=== PATIENT | male | born 2000 | race Caucasian/White ===

== ENCOUNTER 2020-04-11 23:30 | Emergency (ER) | payer SELFPAY ==
[~2020-04-11] VITALS: Ht 188 cm; Wt 90.1 kg
[2020-04-11 23:40] VITALS: BP 132/71
== END 2020-04-12 00:15 | disposition left against medical advice (07) ==
LOC: ER 23:31
DX: R21 Rash and other nonspecific skin eruption (principal); Z53.21 Procedure and treatment not carried out due to patient leaving prior to being seen by health care provider

== ENCOUNTER 2021-05-22 22:03 | Emergency (ER) | payer OTHER ==
[~2021-05-22] VITALS: Ht 170.2 cm; Wt 77.3 kg
[2021-05-22 22:43] LABS: URINE AMPHETAMINE SCREEN NEGATIVE (Neg); URINE BARBITUATE SCREEN NEGATIVE (Neg); URINE BENZODIAZEPINES SCREEN NEGATIVE (Neg); URINE CANNABINOID SCREEN NEGATIVE (Neg); URINE COCAINE SCREEN NEGATIVE (Neg); URINE METHADONE SCREEN NEGATIVE (Neg); URINE OPIATE SCREEN NEGATIVE (Neg); URINE PHENCYCLIDINE SCREEN NEGATIVE (Neg)
[2021-05-22 22:49] LABS: CLARITY,URINE CLEAR (Clear); COLOR,URINE YELLOW (Yellow); GLUCOSE, URINE NEGATIVE (Neg); KETONES,URINE NEGATIVE (Neg); NITRITES, URINE NEGATIVE (Neg); OCCULT BLOOD,URINE NEGATIVE (Neg); PROTEIN,URINE NEGATIVE (Neg); UA COLLECTION TYPE VOIDED; UROBILINOGEN,URINE 0.2 E.U/dL (0.2-1.0)
[2021-05-22 22:50] LABS: LEUKOCYTE ESTERASE ,URINE NEGATIVE (Neg)
[2021-05-22 22:50] LABS: BASOPHILS % (AUTO) 0.5 % (0-1); EOSINOPHILS # (AUTO) 0.1 X10'3 (0-0.9); EOSINOPHILS % (AUTO) 1.4 % (0-6); HEMATOCRIT 39.5 % (42.0-52.0); HEMOGLOBIN 13.5 g/dl (14.0-17.9); LYMPHOCYTES # (AUTO) 1.6 X10'3 (1.1-4.8); LYMPHOCYTES % (AUTO) 28.6 % (21-51); MEAN CORPUSCULAR HEMOGLOBIN 28.7 PG (27.0-31.0); MEAN CORPUSCULAR HGB CONC 34.3 g/dL (33.0-36.5); MEAN CORPUSCULAR VOLUME 83.7 FL (78-98); MEAN PLATELET VOLUME 7.4 FL (7.4-10.4); MONOCYTES # (AUTO) 0.4 X10'3 (0-0.9); MONOCYTES % (AUTO) 7.7 % (2-12); NEUTROPHILS # (AUTO) 3.4 X10'3 (1.8-7.7); NEUTROPHILS % (AUTO) 61.8 % (42-75); PLATELET COUNT 237 X10'3 (140-440); RED BLOOD COUNT 4.72 X10'6 (4.70-6.10); RED CELL DISTRIBUTION WIDTH 13.9 % (11.5-14.5); WHITE BLOOD COUNT 5.6 X10'3 (4.5-11.0)
[2021-05-22 23:01] LABS: ALANINE AMINOTRANSFERASE 86 U/L (12-78); ALBUMIN 4.1 G/DL (3.4-5.0); ALBUMIN/GLOBULIN RATIO 1.1 (1.1-1.5); ALKALINE PHOSPHATASE 66 IU/L (46-116); ANION GAP 9 (8-16); ASPARTATE AMINO TRANSFERASE 44 U/L (10-37); BILIRUBIN,TOTAL 0.5 MG/DL (0.1-1.0); BLOOD UREA NITROGEN 7 MG/DL (7-18); BUN/CREATININE RATIO 9.7 (5.4-32.0); CHLORIDE 104 MMOL/L (99-107); CREATININE 0.72 MG/DL (0.60-1.10); GLUCOSE 116 MG/DL (70-104); POTASSIUM 3.9 MMOL/L (3.5-5.1); SODIUM 142 MMOL/L (135-145); TOTAL CARBON DIOXIDE 29.3 MMOL/L (24-32); TOTAL PROTEIN 7.9 G/DL (6.4-8.2); eGFR > 90 ML/MIN
[2021-05-22 23:09] LABS: ETHANOL < 0.010 GM/DL (0.0-0.010)
--- NOTE | 2021-05-22 23:15 | NUR ---
PT ROOMED BED 15. SECURITY BY ROOM PT ATTEMPTED TO LEAVE UPON ARRIVAL.
--- NOTE | 2021-05-22 23:25 | NUR ---
BELONGINGS HAVE ALREADY BEEN LOCKED BY TECH AND SECURITY.
--- NOTE | 2021-05-22 23:34 | NUR ---
PT IS CURRENTLY DENYING ANY SUICIDAL IDEATION. DENIES SPEAKING TO ANYONE WITH DESIRE TO HURT HIMSELF. DENIES BEING ON ANY MEDICATION OR HAVING ANY FOLLOW UP WITH A THERAPIST. EXPRESSES DESIRE TO HAVE A PHONE CALL AND LEAVE. FLAT AFFECT. ANSWERS QUESTIONS WITH 2-3 WORDS.
[2021-05-23] MEDS ORDERED: LORazepam 2 mg/ml vial IM ONE ×2
[2021-05-23] MEDS ORDERED: diphenhydrAMINE 50 mg/ml inj IM ONE ×2
[2021-05-23] MEDS ORDERED: haloperidol lactate 5mg/ml inj IM ONE ×2
--- NOTE | 2021-05-23 01:16 | NUR ---
pt arrived from main ER and asked to read a book he brought with him. Pt was given his book and went to sleep. RR even and unlabored.
--- NOTE | 2021-05-23 03:39 | NUR ---
pt is laying in bed asleep rr even and unlabored
--- NOTE | 2021-05-23 06:36 | NUR ---
Assumed care recieved report from Minal COULTER, patient resting in bed
--- NOTE | 2021-05-23 08:06 | NUR ---
Breakfast tray set at bedside patient still sleeping
--- NOTE | 2021-05-23 09:01 | NUR ---
PACKET FAXED TO [facility]
--- NOTE | 2021-05-23 10:10 | NUR ---
Patient is still sleeping, patient did not wake for breakfast. Patient has moved side to side while sleeping, respirtations wnl. [id number] Respiration @ 14
--- NOTE | 2021-05-23 12:04 | NUR ---
Patient still sleeping on right side, this wrtier was able to arrouse with name and zeke romero, patient went right back to sleep. Patient is still sleeping off IM medciaton from last night.
--- NOTE | 2021-05-23 12:53 | NUR ---
Lunch set on bedside talble, patient woke up to name and shoulder shake, then quickly fell back asleep. sleeping on back with head of bed up.
--- NOTE | 2021-05-23 13:49 | NUR ---
Patient asked this junior underwriter, "when can I leave", this junior underwriter informed patient that he needs to be awake for a MH evaluation, patient stated that he would like to be woken up when the credit reporter comes back. Patient informed this junior underwriter that he only called 911 because he wanted a ride to [place], "I [place] and needed a ride to a bigger town. Patient states he was in [place]. This junior underwriter explained to patient that he would be evaluated and if his 5150 hold stays that he would be evaluated each day in regards to a safe plan for discharge. Patient appeared to understand and was agreeable and open to the evaluation.
--- NOTE | 2021-05-23 13:53 | NUR ---
Patient is back asleep with the covers over his head. Should be noted that Fredrick only ate about 1/4 of his lunch. Patient did ambulate to the restroom after eating.
--- NOTE | 2021-05-23 14:33 | NUR ---
Patient with [facility] for MH evaluation
--- NOTE | 2021-05-23 15:58 | NUR ---
Patient sleeping on left side no signs of distress, rather looks very comfortable.
--- NOTE | 2021-05-23 16:00 | NUR ---
Per [facility] parole may call to get a copy of [id number], per Mehdi [facility] ok to release records to parole
--- NOTE | 2021-05-23 16:20 | NUR ---
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 Patient states he has a RX of his own. If patient stays the night waiting for [place] this information will be passed on the ED MD.
--- NOTE | 2021-05-23 17:34 | NUR ---
Patient recieved discharge orders, patient d/c to [facility] cab called will call with picker / packer time
[2021-05-23 17:43] VITALS: BP 98/52
--- NOTE | 2021-05-23 18:31 | NUR ---
Patient DC'd at 1830 via cab, accompanied out by security.
== END 2021-05-23 18:34 | disposition home or self-care (01) ==
LOC: ER 22:03
DX: R45.851 Suicidal ideations (principal); Z20.822 Contact with and (suspected) exposure to COVID-19; Z59.00 Homelessness unspecified
CPT/HCPCS: 36415; 80053; 80305; 80320; 81003; 84443; 85025; 87635; 96372; 99284; C9803; J1200; J1630; J2060

== ENCOUNTER 2021-05-24 01:09 | Emergency (ER) | payer MEDICAID, OTHER ==
[~2021-05-24] VITALS: Ht 188 cm; Wt 77.3 kg
[2021-05-24 01:23] VITALS: BP 110/52
== END 2021-05-24 04:37 | disposition home or self-care (01) ==
LOC: ER 01:10
DX: T50.905A Adverse effect of unspecified drugs, medicaments and biological substances, initial encounter (principal); R11.10 Vomiting, unspecified; Z56.0 Unemployment, unspecified; Z59.00 Homelessness unspecified; Z60.2 Problems related to living alone; Y92.9 Unspecified place or not applicable
CPT/HCPCS: 99283

== ENCOUNTER 2022-09-29 05:30 | Emergency (ER) | payer MEDICAID ==
[~2022-09-29] VITALS: Ht 188 cm; Wt 88.6 kg
[2022-09-29] MEDS ORDERED: ondansetron/PF 4mg/2ml inj IV STA (05:38)
[2022-09-29] MEDS ORDERED: normal saline 1000ml 1,000 ML IVB ONE (05:40)
--- NOTE | 2022-09-29 05:58 | NUR ---
RECIEVED REPORT FROM CHAIPN COULTERKISS MIXER ASSUMED CARE OF PT. PIV ESTABLISHED 20G LAC. IVF INFUSING. CHEM AND CBC BLOOD SPECIMENS COLLECTED AND LABLED AT BEDSIDE WITH PT'S VERBAL VERIFY TO CORRECT NAME AND
[2022-09-29 06:00] VITALS: BP 117/66
[2022-09-29] MEDS ORDERED: diphenhydrAMINE 50 mg/ml inj IV ONE (06:20)
[2022-09-29] MEDS ORDERED: metoclopramide 5 mg/ml inj IV ONE (06:20)
[2022-09-29] MEDS ORDERED: pantoprazole 40 MG vial IV ONE (06:20)
[2022-09-29 06:27] LABS: BASOPHILS % (AUTO) 0.2 % (0-1); EOSINOPHILS # (AUTO) 0.1 X10'3 (0-0.9); EOSINOPHILS % (AUTO) 1.1 % (0-6); HEMATOCRIT 42.4 % (42.0-52.0); HEMOGLOBIN 14.5 g/dl (14.0-17.9); LYMPHOCYTES # (AUTO) 1.6 X10'3 (1.1-4.8); LYMPHOCYTES % (AUTO) 14.4 % (21-51); MEAN CORPUSCULAR HEMOGLOBIN 29.4 PG (27.0-31.0); MEAN CORPUSCULAR HGB CONC 34.3 g/dL (33.0-36.5); MEAN CORPUSCULAR VOLUME 85.7 FL (78-98); MEAN PLATELET VOLUME 7.8 FL (7.4-10.4); MONOCYTES % (AUTO) 8.6 % (2-12); NEUTROPHILS # (AUTO) 8.5 X10'3 (1.8-7.7); NEUTROPHILS % (AUTO) 75.7 % (42-75); PLATELET COUNT 205 X10'3 (140-440); RED BLOOD COUNT 4.95 X10'6 (4.70-6.10); RED CELL DISTRIBUTION WIDTH 12.9 % (11.5-14.5); WHITE BLOOD COUNT 11.2 X10'3 (4.5-11.0)
[2022-09-29 06:35] LABS: ALANINE AMINOTRANSFERASE 166 U/L (12-78); ALBUMIN 4.2 G/DL (3.4-5.0); ALBUMIN/GLOBULIN RATIO 1.2 (1.1-1.5); ALKALINE PHOSPHATASE 83 IU/L (46-116); ANION GAP 10 (8-16); ASPARTATE AMINO TRANSFERASE 49 U/L (10-37); BILIRUBIN,TOTAL 0.6 MG/DL (0.1-1.0); BLOOD UREA NITROGEN 11 MG/DL (7-18); BUN/CREATININE RATIO 13.8 (5.4-32.0); CALCIUM 9.1 MG/DL (8.5-10.1); CHLORIDE 104 MMOL/L (99-107); GLUCOSE 100 MG/DL (70-104); LIPASE 79 U/L (73-393); POTASSIUM 3.6 MMOL/L (3.5-5.1); SODIUM 142 MMOL/L (135-145); TOTAL CARBON DIOXIDE 28.3 MMOL/L (24-32); TOTAL PROTEIN 7.6 G/DL (6.4-8.2); eGFR > 90 ML/MIN
[2022-09-29] MEDS ORDERED: pantoprazole 40MG/NS 100ML BAG 100 ML IV ONE (06:35)
[2022-09-29] MEDS ORDERED: normal saline 1000ML IV soln IVB ONE (07:50)
[2022-09-29] MEDS ORDERED: DIPH-186 PO (09:56)
[2022-09-29] MEDS ORDERED: ONDA4TAB12 PO (09:56)
== END 2022-09-29 10:20 | disposition home or self-care (01) ==
LOC: ER 05:31
DX: R11.2 Nausea with vomiting, unspecified (principal); R10.9 Unspecified abdominal pain; F17.200 Nicotine dependence, unspecified, uncomplicated; F10.10 Alcohol abuse, uncomplicated; Z86.19 Personal history of other infectious and parasitic diseases; Z60.2 Problems related to living alone; Z59.00 Homelessness unspecified; Z56.0 Unemployment, unspecified; Z79.899 Other long term (current) drug therapy
CPT/HCPCS: 36415; 80053; 83690; 85025; 96361; 96365; 96375; 99284; C9113; J1200; J2405; J2765; J7030; 99285

== ENCOUNTER 2023-01-30 02:48 | Emergency (ER) | payer MEDICAID ==
[~2023-01-30] VITALS: Ht 188 cm; Wt 77.3 kg
[~2023-01-30 02:48] MED LIST: DIPH-186 PO; ONDA4TAB12 PO
[2023-01-30] MEDS ORDERED: normal saline 1000ML IV soln IVB ONE (03:25)
[2023-01-30] MEDS ORDERED: normal saline 1000ml 1,000 ML IV ONE (08:20)
[2023-01-30 08:42] VITALS: BP 98/61
== END 2023-01-30 10:01 | disposition home or self-care (01) ==
LOC: ER 02:49
DX: F10.129 Alcohol abuse with intoxication, unspecified (principal); R47.81 Slurred speech; Z56.0 Unemployment, unspecified; Z59.00 Homelessness unspecified; Z87.19 Personal history of other diseases of the digestive system; Z79.899 Other long term (current) drug therapy
CPT/HCPCS: 96360; 96361; 99285; J7030